=== PATIENT | female | born 1990 | race Caucasian/White ===

== ENCOUNTER 2022-01-20 14:18 | Emergency (ER) | payer SELFPAY ==
[~2022-01-20] VITALS: Ht 167.6 cm; Wt 86.2 kg
[2022-01-20 14:36] VITALS: BP 121/92
[2022-01-20] MEDS ORDERED: CEPH500C16 PO (14:52)
--- NOTE | 2022-01-20 19:15 | NUR ---
Patient left without D/C papers.
== END 2022-01-20 19:15 | disposition home or self-care (01) ==
LOC: MED 14:18
DX: F15.90 Other stimulant use, unspecified, uncomplicated (principal); F31.9 Bipolar disorder, unspecified; F41.9 Anxiety disorder, unspecified; F17.200 Nicotine dependence, unspecified, uncomplicated; Z79.2 Long term (current) use of antibiotics; Z88.1 Allergy status to other antibiotic agents; Z88.2 Allergy status to sulfonamides
CPT/HCPCS: 99283